=== PATIENT | male | born 2000 | race Two or more races ===

== ENCOUNTER 2024-10-15 13:27 | Emergency (ER) | payer OTHER, SELFPAY ==
[2024-10-15 14:01] VITALS: BP 119/80; PULSE 90; RESP 16; TEMP 37.5; O2SAT 98; BMI 19.1
--- NOTE | 2024-10-15 14:14 | ED_ITS ---
HPI - Extremity Injury (Upper) General Time Seen by Provider: 14:14 Date Seen: 10/15/24 Chief Complaint: Extremity Pain/Injury, Upper Stated Complaint: R elbow pain Time Seen by Provider: 10/15/24 14:14 Source: patient and RN notes reviewed Mode of arrival: ambulatory Limitations: no limitations History of Present Illness HPI narrative: Patient is a very pleasant 24-year-old with up-to-date immunizations who comes to the emergency room for evaluation regarding bandages stuck to a right elbow wound. Patient notes racing another [id number] classmate and slipping on the gravel causing an abrasion to the right elbow. He clean this area immediately and placed a sterile dressing that he had found in the 1st aid kit. Unfortunately he is unable to pull that off today at is as it is adhered and stuck to the wound. He has had no fever chills. He denies any bony problems and is able to move his arm without difficulty. No history of MRSA or hard to treat infections. Related Data Home Medications ?Medication ?Instructions ?Recorded ?Confirmed No Known Home Medications 10/15/24 10/15/24 Allergies Allergy/AdvReac Type Severity Reaction Status Date / Time No Known Drug Allergies Allergy Verified 10/15/24 14:09 Review of Systems Status of ROS: Reports: 6 or more systems reviewed and unremarkable except as noted in History and below [facility] Social History Smoking Status: Current some day smoker What tobacco products do you use: cigarettes Do you use any of these nicotine containing products: None How often do you have a drink containing alcohol: 2-3 times a week How many standard drinks containing alcohol do you have on a typical day: 5 or 6 How often do you have six or more drinks on one occasion: Weekly AUDIT-C Alcohol total score: 8 Non-prescribed substance use: marijuana (any form) Exam Narrative: Exam Narrative: Patient is alert and oriented. Very well-spoken young man in no acute distress from [facility]. Mentation is normal. Examination of the elbow shows adherent bandage. We do allow this to soak and gently pull it away. He has a superficial abrasion about the size of a small orange on his elbow. Smaller dime-size area further on the arm lateral olecranon. No underlying bony tenderness patient has full range of motion. There is a small amount of purulent drainage. Const: Vital Signs, click to edit/add: Vital Signs - 24 hr 10/15/24 14:01 Temperature 99.5 F Pulse Rate [Pulse Oximeter] 90 Respiratory Rate 16 Blood Pressure [Le ft Upper Arm] 119/80 Pulse Oximetry 98 Oxygen Delivery Me thod Room Air Documenting provider has reviewed patient's vital signs: yes Course Vital Signs Vital signs: Initial Vital Signs Temperature 99.5 F 10/15/24 14:01 Temperature Source Temporal Artery Scan 10/15/24 14:01 Pulse Rate 90 10/15/24 14:01 Respiratory Rate 16 10/15/24 14:01 Blood Pressure 119/80 10/15/24 14:01 Blood Pressure Mean 93 10/15/24 14:01 Blood Pressure Position Sitting 10/15/24 14:01 Pulse Oximetry 98 10/15/24 14:01 Oxygen Delivery Method Room Air 10/15/24 14:01 Vital Signs Temperature 99.5 F 10/15/24 14:01 Pulse Rate 90 10/15/24 14:01 Respiratory Rate 16 10/15/24 14:01 Blood Pressure 119/80 10/15/24 14:01 Pulse Oximetry 98 10/15/24 14:01 Oxygen Delivery Method Room Air 10/15/24 14:01 Temperature 99.5 F 10/15/24 14:01 Pulse Rate 90 10/15/24 14:01 Respiratory Rate 16 10/15/24 14:01 Blood Pressure 119/80 10/15/24 14:01 Pulse Oximetry 98 10/15/24 14:01 Oxygen Delivery Method Room Air 10/15/24 14:01 MDM - Extremity Injury (Upper) MDM Narrative Medical decision making narrative: 1. Abrasion with infection-patient's arm was cleansed. Vaseline applied today along with a dressing. I would like this gentleman to continue to apply Vaseline twice daily until the wound is healed. Will place him on Keflex 500 mg p.o. t.i.d. x7 days for infection. 2. Disposition-no evidence of underlying injury today. Do not feel he needs radiological studies. Return as needed for worsening symptoms pain. Discharge Plan Discharge Clinical Impression: Abrasion of elbow with infection Patient Disposition: Home, Self-Care Condition: Improved Additional Instructions: Start Keflex today for treatment of wound infection. I would apply Vaseline to area wound twice daily as this heals. Seek medical attention for worsening symptoms especially fevers and chills. Prescriptions: No Action No Known Home Medications Follow Up/Referrals: Provider,Not a Local [Primary Care Provider] - Stand Alone Forms: Interacting Technology Info Instructions
--- OUTSIDE RECORDS SUMMARY | 2024-10-15 14:32 | XMS_ITS | Clinical Summary ---
Author Organization [facility] Address [address] [place] [id number] Care Team Providers Care Store Receiver Name Role Phone Nancy Swan Primary Care Provider [phone] Allergies No known active allergies Medications No known medications Social History Tobacco Use Types Packs/Day Years Used Date Smoking Tobacco: Never Smokeless Tobacco: Never Tobacco Cessation:Counseling Given: Not Answered Alcohol Use Standard Drinks/Week Comments Yes 0 (1 standard drink = 0.6 oz pur e alcohol) Occasional PHQ-2 Answer Date Recorded PHQ-2 TOTAL SCORE 1 07/01/2022 Social Connections Answer Date Recorded Frequency of Communication with Friends and Fami ly Not on file 07/01/2022 Sex and Gender Information Value Date Recorded Sex Assigned at Not on file Legal Sex Male 7:27 AM [employer] Gender Identity Not on file Sexual Orientation Not on file Obstetrics History Last Filed Vital Signs Vital Sign Reading Time Taken Comments Blood Pressure 104/70 07/01/2022 1:49 PM [employer] Pulse 67 07/01/2022 1:49 PM [employer] Temperature - - Respiratory Rate - - Oxygen Saturation 97% 07/01/2022 1:49 PM [employer] Inhaled Oxygen Concentration - - Weight 54.5 kg (120 lb 3.2 oz) 07/01/2022 1:49 P M [employer] Height 180.7 cm (5' 11.14) 07/01/2022 1:[address] Body Mass Index 16.7 07/01/2022 1:49 PM [employer] Plan of Treatment Health Maintenance Due Date Last Done Comments Tdap 2013 HIV for age 15-65 2017 HPV series for age 9-26 (1 - Male 3-dose series) 2017 Hepatitis C screening for ag e 18-79 01/16/2020 Tetanus booster 2022 BMI (ht and wt on same day) for age 18+ 07/01/2023 07/01/2022 Depression screening for age 12+ 07/01/2023 07/01/19 COVID-19 vaccine series ( season) 2024 Influenza Vaccine (Season Ended) 2025 Pneumococcal series for age 6-49 Aged Out No longer eligible based on patient's age to complete this topic [facility] Care Teams Store Receiver Relationship Specialty Start Date End Date Nancy Swan PA [address] [place] [address] PCP - General Physician [employer] 07/01/22
== END 2024-10-15 14:51 | disposition home or self-care (01) ==
PROVIDERS: Emergency Provider Family Medicine
DX: S50.311A Abrasion of right elbow, initial encounter (principal); L08.9 Local infection of the skin and subcutaneous tissue, unspecified
CPT/HCPCS: 99283